=== PATIENT | female | born 1970 | race Caucasian/White ===

== ENCOUNTER 2020-08-25 08:42 | Emergency (ER) | payer SELFPAY ==
[~2020-08-25] VITALS: Ht 175.3 cm; Wt 90.9 kg
[~2020-08-25 08:42] MED LIST: TRAM1TAB4 PO
[2020-08-25 08:56] VITALS: BP 138/77
[2020-08-25] MEDS ORDERED: AMOX500C PO (09:14)
--- NOTE | 2020-08-25 09:14 | PHYS DOC ---
Past Medical History Past Medical History: Migraines Past Surgical History: Other Additional Past Surgical Histo: X 2 ABD SURGERIES,BREAST AUGMENTATION Smoking Status: Current Some Day Smoker Alcohol Use: Occasionally Drug Use: None General Adult EDM: Chief Complaint: DENTAL PROBLEM HPI: HPI: The history was obtained from the patient. Patient is a 50-year-old female with no reported PMH who presents with a chief complaint of dental pain. Patient states she is had dental pain for the past 2 months. She states that she has been evaluated for it many months ago and was on several antibiotics. She states x-rays were performed at [facility] that showed a cracked tooth. She states that her dental pain seemed to worsen recently. Denies any new trauma or injury to the tooth. Denies fevers. Denies drainage in the mouth. States that she is running out of her home tramadol which is causing her pain to be worse. States she cannot take ibuprofen due to history of stomach ulcers. She states that she occasionally tries Tylenol. Denies trismus. Denies changes in her voice. Denies pain with swallowing. Denies any neck pain. Denies any swelling underneath her jaw. No other complaints. Review of Systems: Review of Systems: Constitutional: Denies fever or chills. [] Eyes: Denies change in visual acuity. [] HENT: Positive for dental pain Respiratory: Denies cough or shortness of breath. [] Cardiovascular: Denies chest pain or edema. [] GI: Denies abdominal pain, nausea, vomiting, bloody stools or diarrhea. [] : Denies dysuria. [] Musculoskeletal: Denies back pain or joint pain. [] Integument: Denies rash. [] Neurologic: Denies headache, focal weakness or sensory changes. [] Endocrine: Denies polyuria or polydipsia. [] Lymphatic: Denies swollen glands. [] Psychiatric: Denies depression or anxiety. [] Heart Score: Risk Factors: Risk Factors: DM, Current or recent (<one month) smoker, HTN, HLP, family history of CAD, obesity. Risk Scores: Score 0 - 3: 2.5% MACE over next 6 weeks - Discharge Home Score 4 - 6: 20.3% MACE over next 6 weeks - Admit for Clinical Observation Score 7 - 10: 72.7% MACE over next 6 weeks - Early Invasive Strategies Allergies: Allergies: Allergies Coded Allergies Type Severity Reaction Last Updated Verified No Known Drug Allergies 08/25/20 No Physical Exam: PE: Constitutional: Well developed, well nourished, no acute distress, non-toxic appearance. [] HENT: Necrotic tooth noted at space 17. No periapical abscess appreciated. No tenderness with percussion. No submental or submandibular swelling. No trismus. No dysphonia. No uvular deviation or tonsillar swelling or exudates. Eyes: PERRLA, EOMI, conjunctiva normal, no discharge. [] Neck: Normal range of motion, no tenderness, supple, no stridor. [] Cardiovascular:Heart rate regular rhythm, no murmur [] Lungs & Thorax: Bilateral breath sounds clear to auscultation [] Abdomen: Bowel sounds normal, soft, no tenderness, no masses, no pulsatile mas ses. [] Skin: Warm, dry, no erythema, no rash. [] Back: No tenderness, no CVA tenderness. [] Extremities: No tenderness, no cyanosis, no clubbing, ROM intact, no edema. [] Neurologic: Alert and oriented X 3, normal motor function, normal sensory function, no focal deficits noted. [] Psychologic: Affect normal, judgement normal, mood normal. [] EKG: EKG: [] Radiology/Procedures: Radiology/Procedures: [] Course & Med Decision Making: Course & Med Decision Making Pertinent Labs and Imaging studies reviewed. (See chart for details) [] Patient is overall well-appearing 50-year-old female presents with chief complaint of chronic dental pain. Initial vital signs unremarkable. I did e ncourage the patient to continue to take her home tramadol and use Tylenol as needed. She will be given a course of amoxicillin. She was instructed to follow-up with a dentist. She was given a referral list to primary care physician for follow-up. Return precautions discussed and understood. Stable for discharge home. Lilly Disclaimer: Lilly Disclaimer: This electronic medical record was generated, in whole or in part, using a voice recognition dictation system. Departure Departure Impression: Primary Impression: Tooth pain Disposition: 01 DC HOME SELF CARE/HOMELESS Condition: STABLE Referrals: NO PCP (PCP) Patient Instructions: Dental Abscess Additional Instructions: [facility] [address] [address] [facility] [address] [place] [address] [facility] [address] [place] [address] [facility] [address] [place] [address] [facility] [address] [place] [address] [facility] [address] [place] [address] [facility] [place] [address] [place] [address] [facility] [address] [place] [address] [facility] [address] [place] [address] [facility] Department [address] [place] [address] Scripts Amoxicillin (AMOXICILLIN) 500 Mg Capsule 1 CAP PO BID for 10 Days, #20 CAP Prov: MARY REHMAN DO 08/25/20 MARY REHMAN DO Aug 25, 2020 09:14
== END 2020-08-25 10:13 | disposition home or self-care (01) ==
LOC: ER 08:42
DX: K08.89 Other specified disorders of teeth and supporting structures (principal); G43.909 Migraine, unspecified, not intractable, without status migrainosus; Z98.890 Other specified postprocedural states; Z87.891 Personal history of nicotine dependence
CPT/HCPCS: 99283